=== PATIENT | female | born 1995 | race Caucasian/White ===

== ENCOUNTER → 2018-06-05 | Outpatient (REF) | payer OTHER | LOC: M LAB REF 17:29 | PROVIDERS: ATTEND Nurse Practitioner Women's Health | DX: R10.2 Pelvic and perineal pain (principal) ==

== ENCOUNTER → 2018-06-13 | Outpatient (REF) | payer OTHER ==
[2018-06-13 19:02] LABS: HEMATOCRIT 41.7 % (36.0-47.0); HEMOGLOBIN 13.6 g/dl (12.0-15.5); MEAN CORPUSCULAR HEMOGLOBIN 30.1 pg (27.0-33.0); MEAN CORPUSCULAR HGB CONC 32.6 g/dl (32.0-36.5); MEAN CORPUSCULAR VOLUME 92.3 fl (80.0-96.0); PLATELET COUNT, AUTOMATED 242 10^3/uL (150-450); RED BLOOD COUNT 4.52 10^6/uL (4.00-5.40)
[2018-06-14 20:31] LABS: HCG, SERUM QUANTITATIVE < 1.0 MIU/ML
[2018-06-16 10:50] LABS: RUBELLA IgG QUALITATIVE IMMUNE (IMMUNE)
[2018-06-16 11:19] LABS: HIV 1&2 SCREEN CENTAUR NEGATIVE (NEGATIVE)
== END ==
LOC: M LAB REF 17:28
PROVIDERS: ATTEND Nurse Practitioner Women's Health
DX: O36.80X0 Pregnancy with inconclusive fetal viability, not applicable or unspecified (principal); Z32.01 Encounter for pregnancy test, result positive

== ENCOUNTER → 2019-02-11 | Outpatient (CLI) | payer MEDICAID, OTHER ==
--- NOTE | 2019-02-11 14:37 | REP ---
Clinical: Dating and viability. Technique: Transabdominal first trimester obstetrical ultrasound with color Doppler evaluation Findings: Single live early intrauterine is appreciated. Gestational sac with yolk sac and pole identified. [place]-rump length of 15 mm corresponds to 7 weeks 5 days gestational age with estimated date of delivery the 09/25/2019 . heart rate equals 157 beats per minute. No gross abnormalities are identified. Impression: Single live early intrauterine at 7 weeks 5 days gestational age. Complete anatomical assessment should be performed and 19-20 weeks. Electronically Signed by Adrian Baires MD 02/11/2019 02:29 P
== END ==
LOC: M RAD 13:44
PROVIDERS: ATTEND Nurse Practitioner Family
DX: Z32.01 Encounter for pregnancy test, result positive (principal)